=== PATIENT | female | born 1985 ===

== ENCOUNTER 2018-02-05 07:43 | Inpatient (IN) | payer MEDICAID, SELFPAY ==
[2018-02-01 09:04] VITALS: BMI 25.7
--- NOTE | 2018-02-05 08:37 | CP.PCM.HP ---
History of Present Illness - History of Present Illness History of Present Illness: 32 yo @17.2 weeks GA admitted to [facility] for resection of right adnexal mass. Maternal Medicine(MFM) Dr. Ruiz was consulted for pt's right adnexal mass, recommended to have pelvis MRI and MRI on 01/01/18 showed large ( 6.6 x 9.7 x 10.0 cm) complex right abdominopelvic mass which may represent a dermoid tumor. MFM also recommended to have resection of the mass because mass can increase the loss during 2nd trimester. Patient currently denies pelvic pain, vaginal discharge, vaginal bleeding, CTX or LOF. Pt reports + movement. Denies any headache, dizziness, chest pain, dyspnea, nausea, vomiting , fever or chills. 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, HPV positive Past medical Hx: right adnexal mass Past surgical hx: denies Social hx: denies smoking cigarettes, drinking ETOH or using drugs Family hx: denies family hx DMII, CAD or CA Medications: PNV Allergies: NKDA Present on Admission - Present on Admission Any Indicators Present on Admission: Yes Review of Systems - Constitutional Constitutional: absent: Chills, Fever - EENT Eyes: absent: Blurred Vision, Change in Vision - Cardiovascular Cardiovascular: absent: Chest Pain, Dyspnea - Respiratory Respiratory: absent: Cough, Dyspnea - Gastrointestinal Gastrointestinal: absent: Abdominal Pain, Nausea, Vomiting - Genitourinary Genitourinary: absent: Dysuria - Musculoskeletal Musculoskeletal: absent: Back Pain, Numbness, Tingling - Neurological Neurological: absent: Dizziness, Headaches Past Patient History - Past Medical History & Family History Past Medical History?: No - Past Social History Smoking Status: Never Smoked - PSYCHIATRIC Hx Emotional Abuse: No Hx Physical Abuse: No - SURGICAL HISTORY Hx Surgeries: No - ANESTHESIA Hx Anesthesia: Yes (EPIDURAL FOR DELIVERY) Hx Anesthesia Reactions: No Hx Malignant Hyperthermia: No Has any member of the family had a problem w/ anesthesia?: No Meds Allergies/Adverse Reactions: Allergies Allergy/AdvReac Type Severity Reaction Status Date / Time No Known Allergies Allergy Verified 02/05/18 07:55 Physical Exam - Constitutional Appears: Well, No Acute Distress - Head Exam Head Exam: ATRAUMATIC, NORMAL INSPECTION - Eye Exam Eye Exam: EOMI, Normal appearance - ENT Exam ENT Exam: Mucous Membranes Moist, Normal Exam - Neck Exam Neck exam: Positive for: Normal Inspection - Respiratory Exam Respiratory Exam: Clear to Auscultation Bilateral, NORMAL BREATHING PATTERN. absent: Rales, Rhonchi, Wheezes - Cardiovascular Exam Cardiovascular Exam: REGULAR RHYTHM, RRR, +S1, +S2 - GI/Abdominal Exam GI & Abdominal Exam: Normal Bowel Sounds, Soft. absent: Rebound, Tenderness Additional comments: gravid abdomen - Extremities Exam Extremities exam: Positive for: normal inspection. Negative for: pedal edema - Neurological Exam Neurological exam: Alert, Oriented x3 - Psychiatric Exam Psychiatric exam: Normal Affect, Normal Mood - Additional Findings Additional findings: doppler shows heart rate of 147 Results - Vital Signs Recent Vital Signs: Last Vital Signs Temp 98 F 02/05/18 08:18 Pulse 70 02/05/18 08:24 Resp 18 02/05/18 08:18 BP 109/69 02/05/18 08:18 Pulse Ox 100 02/05/18 08:18 Assessment & Plan - Assessment and Plan (Free Text) Assessment: Assessment: 32 yo IUP at 17.2 weeks GA admitted to [facility] for resection of right adnexal mass. Plan: Admit to inpatient unit labs Ancef 1 gm Anesthesia consult heart rate 147 Patients all the questions and concerns were addressed by Dr. Marie Patient seen and examined with Dr. Frank Wall, pgy-2
[2018-02-05] MEDS ORDERED: Sodium Chloride 0.9% 10 ML IV ONE ×2 (09:57→12:12)
[2018-02-05] MEDS ORDERED: Bupivacaine HCl 0.25% PF (30 ml) Inj ONE (09:57)
[2018-02-05] MEDS ORDERED: Morphine 1 mg/ml preservative-free Inj(Duramorph) ONE (10:32)
[2018-02-05] MEDS ORDERED: Lactated Ringer's 1,000 ML IV ONE ×2 (10:55→12:05)
[2018-02-05] MEDS ORDERED: Ketamine 50 mg/ml Inj (10 ml) ONE (11:56)
[2018-02-05] MEDS ORDERED: ceFAZolin 1 GM in Sodium Chloride 0.9% 100 ML IVPB ONE (12:00)
[2018-02-05] MEDS ORDERED: Cellulose Hemostat 2X3 Sheet ONE (12:31)
[2018-02-05] MEDS ORDERED: Oxycodone/Acetaminophen 5/325 mg Tab PO PRN ×2 (12:54→12:55)
[2018-02-05] MEDS: Lactated Ringer's 1,000 ML IV SCH ×2 (16:01→20:27)
[2018-02-06] MEDS ORDERED: Simethicone 80 mg Chewtab PO PRN (04:58)
[2018-02-06] MEDS: Lactated Ringer's 1,000 ML IV SCH ×3 (05:06→21:30)
[2018-02-06 06:45] LABS: MEAN CELL VOLUME 92.8 fl (81.0-99.0); MEAN CORPUSCULAR HEMOGLOBIN 32.8 pg (27.0-31.0); MEAN CORPUSCULAR HGB CONC 35.3 g/dL (33.0-37.0); RBC 3.36 Mil/uL (3.80-5.20); RED CELL DISTRIBUTION WIDTH 12.8 % (11.5-14.5); WHITE BLOOD COUNT 14.1 K/uL (4.8-10.8)
[2018-02-06] MEDS ORDERED: Oxycodone/Acetaminophen 5/325 mg Tab PO PRN (08:00)
--- NOTE | 2018-02-06 08:40 | CP.PCM.PN ---
Subjective - Date & Time of Evaluation Date of Evaluation: 02/06/18 Time of Evaluation: 08:36 - Subjective Subjective: Progress note for Dr. Marie Patient seen and examined at bedside this morning. Reports mild pain at the incision area and pain is controlled with pain medication. Pt reports occasional burping but no flatus or BM yet. Pt is tolerating PO liquid. Reports good movement. Denies any chest pain, dyspnea, nausea, vomiting, fever, chills or calf pain. Objective - Vital Signs/Intake and Output Vital Signs (last 24 hours): Temp Pulse Resp BP Pulse Ox 98.7 F 85 20 100/67 98 02/06/18 08:31 02/06/18 08:31 02/06/18 08:31 02/06/18 08:31 02/06/18 08:31 Intake and Output: 02/06/18 02/06/18 06:59 18:59 Intake Total 1740 Output Total 1450 Balance 290 - Medications Medications: Current Medications Acetaminophen (Tylenol 325mg Tab) 650 mg PO Q4 PRN PRN Reason: Pain, Mild (1-3) Last Admin: 02/06/18 07:10 Dose: 650 mg Docusate Sodium (Colace) 100 mg PO BID [facility] Lactated Ringer's (Lactated Ringer's) 1,000 mls @ 125 mls/hr IV .Q8H LORI Last Admin: 02/06/18 05:06 Dose: 125 mls/hr Morphine Sulfate (Morphine) 2 mg IVP Q4 PRN PRN Reason: Pain, moderate (4-7) Last Admin: 02/05/18 22:20 Dose: 2 mg Ondansetron HCl (Zofran Inj) 4 mg IVP Q6 PRN PRN Reason: Nausea/Vomiting Last Admin: 02/05/18 17:01 Dose: 4 mg Oxycodone/Acetaminophen (Percocet 5/325 Mg Tab) 1 tab PO Q4 PRN PRN Reason: Pain, severe (8-10) Stop: 02/09/18 08:01 Multivit/Folic Acid/Iron () 1 tab PO DAILY LORI Simethicone (Mylicon Chew Tab) 80 mg PO PCHS PRN PRN Reason: Flatulence Last Admin: 02/06/18 05:05 Dose: 80 mg - Labs Labs: 02/06/18 05:45 - Constitutional Appears: Well, No Acute Distress - Head Exam Head Exam: ATRAUMATIC, NORMAL INSPECTION - Eye Exam Eye Exam: EOMI, Normal appearance - ENT Exam ENT Exam: Mucous Membranes Moist, Normal Exam - Respiratory Exam Respiratory Exam: Clear to Ausculation Bilateral, NORMAL BREATHING PATTERN. absent: Rales, Rhonchi, Wheezes, Respiratory Distress - Cardiovascular Exam Cardiovascular Exam: REGULAR RHYTHM, RRR, +S1, +S2 - GI/Abdominal Exam GI & Abdominal Exam: Soft, Normal Bowel Sounds. absent: Distended, Guarding, Rebound Additional comments: Appropriately tender at the lower abdomen. Dressing looks C/D/I. No discharge/ serosanguineous fluids seen over the dressing. - Extremities Exam Extremities Exam: Normal Capillary Refill, Normal Inspection. absent: Calf Tenderness, Pedal Edema - Neurological Exam Neurological Exam: Alert, Awake, Oriented x3 - Psychiatric Exam Psychiatric exam: Normal Affect, Normal Mood - Skin Skin Exam: Normal Color, Warm Assessment and Plan - Assessment and Plan (Free Text) Assessment: Assessment/Plan: 32 yo @17.3 weeks GA s/p resection of right ovarian dermoid cyst yesterday, doing well on POD 1. -Afebrile, vitals WNL -Mild leukocytosis (wbc 14.1) likely secondary to surgical procedure -OOB as tolerated -D/C sewell -Advance regular diet as tolerated -Pain management with pain meds -SCDs Case d/w Dr. Desmond Wall, pgy-2
[2018-02-06] MEDS: Prenatal Multivit/Folic Acid/Iron Tab PO SCH (10:17)
[2018-02-06 23:45] VITALS: O2SAT 98
[2018-02-07] MEDS: Lactated Ringer's 1,000 ML IV SCH (05:59)
[2018-02-07] MEDS: Prenatal Multivit/Folic Acid/Iron Tab PO SCH (07:59)
[2018-02-07 08:01] VITALS: BP 96/52; PULSE 65; RESP 20; TEMP 98.7
--- NOTE | 2018-02-07 10:08 | CP.PCM.DIS ---
Provider - Provider Date of Admission: 02/05/18 12:51 Attending physician: Jory Logan MD Primary care physician: NO FAMILY PROVIDER Time Spent in preparation of Discharge (in minutes): 25 Diagnosis - Discharge Diagnosis (1) Dermoid cyst of right ovary Status: Acute (2) Second trimester Status: Acute Hospital Course - Lab Results Lab Results: Most Recent Lab Values WBC 14.1 K/uL (4.8-10.8) H 02/06/18 05:45 RBC 3.36 Mil/uL (3.80-5.20) L 02/06/18 05:45 Hgb 11.0 g/dL (12.0-16.0) L 02/06/18 05:45 Hct 31.2 % (34.0-47.0) L 02/06/18 05:45 MCV 92.8 fl (81.0-99.0) 02/06/18 05:45 MCH 32.8 pg (27.0-31.0) H 02/06/18 05:45 MCHC 35.3 g/dL (33.0-37.0) 02/06/18 05:45 RDW 12.8 % (11.5-14.5) 02/06/18 05:45 Plt Count 200 K/uL (130-400) 02/06/18 05:45 Blood Type O POSITIVE 02/05/18 09:54 Antibody Screen Negative 02/05/18 09:54 BBK History Checked Patient has bt 02/05/18 09:54 - Hospital Course Hospital Course: 32 yo @17.4 weeks GA admitted to [facility] on 02/05/18 for resection of right adnexal mass. Pt was admitted to med/surg unit after the surgery. Pt did not have any complications during the course of stay. heart rate was checked during the inpatient stay. 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 Today, pt reports she is doing well. Ambulating well w/ o dizziness. Reports incision pain is controlled with pain medications. pt is tolerating regular diet w/o nausea or vomiting. Pt reports +flatus. Pt reports + movement. Denies any headache, dizziness, chest pain, dyspnea, nausea, vomiting, fever or chills. Pt is medically stable to discharge home with postoperative f/u with Dr. Marie on 02/12/18 at 3 pm. Medications on discharge: Docusate [Colace] 100 mg PO BID PRN #30 cap oxyCODONE/Acetaminophen [Percocet 5/325 mg Tab] 1 tab PO Q4 PRN #15 tab for Pain , Severe (8-10) Take tylenol 650 mg ( 325 mg x 2 ) tablets every 4-6 hours as needed for mild to moderate pain. Continue with PNV Discharge Exam - Head Exam Head Exam: ATRAUMATIC, NORMAL INSPECTION - Eye Exam Eye Exam: EOMI, Normal appearance - ENT Exam ENT Exam: Mucous Membranes Moist - Respiratory Exam Respiratory Exam: Clear to PA & Lateral, NORMAL BREATHING PATTERN. absent: Rales, Rhonchi, Wheezes - Cardiovascular Exam Cardiovascular Exam: REGULAR RHYTHM, RRR, +S1, +S2 - GI/Abdominal Exam GI & Abdominal Exam: Normal Bowel Sounds, Soft. absent: Distended, Guarding, Rebound Additional comments: Incision site C/D/I. Steri strips intact. No surrounding swelling or erythema. - Extremities Exam Extremities exam: full ROM, normal inspection - Neurological Exam Neurological exam: Alert, CN II-XII Intact, Oriented x3 - Psychiatric Exam Psychiatric exam: Normal Affect, Normal Mood - Additional Findings Additional findings: doppler this morning shows heart rate of 156 Discharge Plan - Discharge Medications Prescriptions: Docusate [Colace] 100 mg PO BID PRN #30 cap PRN Reason: Constipation oxyCODONE/Acetaminophen [Percocet 5/325 mg Tab] 1 tab PO Q4 PRN #15 tab PRN Reason: Pain, Severe (8-10) - Follow Up Plan Condition: GOOD Disposition: HOME/ ROUTINE Instructions: Ovarian Cysts, Surgical Wound (DC), Ovarian Cyst Removal (DC) Additional Instructions: Take tylenol 650 mg ( 325 mg x 2 ) tablets every 4-6 hours as needed for mild to moderate pain. Take percocet 5mg/325 mg tablet every 4 hours as needed for severe pain. Follow up with Dr. Marie on 02/12/18 at 3 pm Referrals: FAMILY PROVIDER,NO [Primary Care Provider] - Frank-Jory Oleary MD [Staff Provider] -
--- NOTE | 2018-02-08 05:58 | OP ---
PROCEDURE DATE: 02/05/2018 PREOPERATIVE DIAGNOSIS: A 17-week gestation with right-sided solid and cystic adnexal mass. POSTOPERATIVE DIAGNOSIS: A 17-week gestation with right-sided solid and cystic adnexal mass. OPERATION PERFORMED: Laparotomy with right ovarian cystectomy. SURGEON: Jory Orr MD ASSISTANTS: Efren Oleary MD and Dr. Sultan Wall, PGY-2. ESTIMATED BLOOD LOSS: 200 mL. URINE OUTPUT: 1300 mL clear, end of procedure. INTRAVENOUS FLUID: 1200 mL, lactated Ringer's. FINDINGS: Upon entry into the pelvic cavity, an enlarged approximately 10 cm right ovarian mass was noted. No other gross abnormal findings. CLOSURE: Subcuticular. PATHOLOGY: Right ovarian cyst. COMPLICATIONS: None. HEART RATE: Preoperatively 147 and postoperatively 160. DESCRIPTION OF PROCEDURE: The patient was taken to the operating room and given a combined spinal epidural by without complication. The patient was placed in the dorsal supine position with a leftward tilt and prepped and draped in the normal sterile fashion. A Pfannenstiel skin incision was then made with the leaf of the scalpel and carried through to the underlying fascia with the Bovie. The fascia was incised in the midline, and the incision extended laterally using the Bovie. The inferior aspect of the fascial incision was then gasped with Danika clamps, elevated, and the underlying rectus muscles were dissected off sharply with the Bovie, then bluntly. Attention was then turned to the superior aspect of the fascial incision, which, in a similar fashion, was dissected off sharply with the Bovie, then bluntly. The rectus muscles were then meticulously in the midline. The peritoneum was identified, tented up, and entered with Metzenbaum scissors. This incision was then extended laterally, superiorly, and inferiorly paying close attention to the bladder. At this time, the bowel was packed away with moist laparotomy sponges. The right adnexa were then palpated, and the enlarged right ovarian cyst was noted and elevated out of the abdominopelvic cavity. A scalpel was then used to incise the cyst wall, and this was then removed with sharp and blunt dissection. The cyst was then handed off of the field to be sent for pathology. Following this, a 2-0 Vicryl on MSH needle was then used for repairing of the ovary. Three [id number] sutures were then placed as well followed by a running baseball stitch. Good hemostasis was then noted throughout. This was covered with Surgicel and returned to the abdominopelvic cavity. Inspection of the left adnexa revealed no abnormalities, and the uterus appeared normal, gravid, consistent with 17-week size. Copious irrigation was then performed. All laparotomy sponges were removed. The peritoneum was closed with 2-0 Vicryl in a running fashion, and the rectus muscles were reapproximated with the same suture in a running fashion. The fascia was reapproximated with 0 Vicryl in a running fashion bilaterally to the midline. The subcutaneous fat layer was then closed with 4 interrupted stitches using a 3-0 plain suture, and the skin was closed with 4-0 Monocryl on a Michael needle with a subcuticular stitch. The incision was covered with Steri-Strips and a sterile dressing. The patient tolerated the procedure well. Sponge, lap, and needle counts were all correct. The patient was given Ancef 1 g preoperatively. The patient was then cleaned and transferred to the recovery room in stable condition where the epidural catheter was removed. The postoperative heart rate was found to be 160. There was no injury noted to the bladder, bowel, ureter, or uterus. Due to the nature of this case, an preschool teacher's assistant was requested. My preschool teacher's assistant, Dr. Oleary, was present for the entire procedure from the initial incision to the patient's transfer to the recovery room. He assisted in all aspects of the case including providing good retraction to minimize blood loss, dissection of the enlarged right ovarian cyst and closure of the remaining ovary and all layers of the abdominal wall. This procedure could not have been performed without his assistance. Jory Orr MD
== END 2018-02-07 11:37 | disposition home or self-care (01) | DRG 782 ==
LOC: H.OPSURG 07:43 → H.MEDSURG1 12:51
PROVIDERS: ADMIT Obstetrics & Gynecology; ATTEND Obstetrics & Gynecology
PROC: 0UB00ZZ Excision of Right Ovary, Open Approach (ICD-10-PCS; principal; 2018-02-05 10:00)
DX: O34.82 Maternal care for other abnormalities of pelvic organs, second trimester (principal); D27.0 Benign neoplasm of right ovary; Z3A.17 17 weeks gestation of pregnancy; D72.829 Elevated white blood cell count, unspecified

== ENCOUNTER 2018-07-06 00:39 | Emergency (ER) | payer SELFPAY ==
[2018-07-06 01:07] VITALS: BMI 28.9
--- NOTE | 2018-07-06 01:55 | OBHP ---
Datetime: 07/06/2018 01:42 IP Adm Impression: Term, intrauterine IP Admit Plan: Discharge home Admit Comment, IP Provider: 33 yo f 38.6wk with no pmh present to [place] due to contraction st arted at 18:00 07/05/18. Pt state that contraction are every 8min regular. She does report noticing s ome water leakage but not alot. Otherwise patient denies any vaginal bleeding, or water gush. Pt repo rt + movement PCP: Dr. Marie Allergy none Med PNV PMH None PSH: Cysct removal in R Ovarie OBGYN: 1 NVD 8 year ago, no std FH: Pt denies any family history of medical conditions Social: denies smoke ETOH drug use 1:46 Assessment and plan 33 yo f 38.6wk with no pmh present to [place] due to contraction started at 18:00 07/05/18. Pt is not in acute distress Pelvic examination : cervix closed, posterior, no pooling noted, and Nitro NEG FHS reactive Tocometer mild contraction noted Pt is not in active labor, Pt will be discharge with ER Precaution Pt advised if she stop feeling baby, or notice water gush, increase bleeding, increase in freq of contraction or any other symptoms of concern to Go to ER. Pt adivsed to make an appointment with PCP Discussed case with Dr. Matias Bangura PGY1 OB Hospitalist Addendum: Pt seen and examined by me. Agree w/ above. 33 yo at 38+6 wks c/o ctxns since 6 pm and reports feeling a little fluid come out. Spec: no pool, nitrazine neg. VE : C/L/P. FHT reactive. Pt discharged home w/ precautions and told to po hydrate. Pt also told to s chedule f/u appoint nect week w/ OB provider. (ES) Pelvic Type - PN: Adequate Extremities - PN: Normal Abdomen - PN: Normal Back - PN: Normal Breast - PN: Not Done Lungs - PN: Normal Heart - PN: Normal Thyroid - PN: Normal Neurologic - PN: Normal HEENT - PN: Normal General - PN: Normal FHR - Baseline A Provider: 140 Comments, ACOG Physical Exam: Pt is not in acute distress heart s1/s2 heard no extra heart sound lung clear effortless Abd nontender, BS+ Pelvic Cervix closed posterior, no pooling noted, Nitro NEG Gestation - Est Wks by US: 38.6 Pool Provider: Negative Nitrazine Provider: Negative EGA AdmitDate IP: 38.6 Vital Signs Provider: Reviewed; Within Normal Limits IP Chief Complaint: Uterine contractions Dilatation, Provider: 0 Genitourinary Exam: Normal DTRs - PN: Normal
--- NOTE | 2018-07-06 01:55 | OBDCSUM ---
Datetime: 07/06/2018 01:44 Discharged to, Provider: Home Follow up at, Provider: [facility] Disch Instr Activity: Normal activity Disch Instr Diet: Regular Discharge Diagnosis, Provider: Leonila Labor - Undelivered Discharge Time: 07/06/2018 01:44 Follow up in weeks, Provider: 1 week Disch Referrals: None
[2018-07-06 05:58] VITALS: BP 99/76; PULSE 95; RESP 20; TEMP 98.4; O2SAT 100
== END 2018-07-06 01:38 | disposition home or self-care (01) ==
LOC: H.EROB2 00:39
DX: O26.93 Pregnancy related conditions, unspecified, third trimester (principal); R10.2 Pelvic and perineal pain; Z3A.38 38 weeks gestation of pregnancy